=== PATIENT | female | born 1995 | race Caucasian/White ===

== ENCOUNTER 2017-06-27 12:33 | Outpatient (CLI) | payer OTHER ==
[~2017-06-27] VITALS: Ht 160 cm; Wt 113.4 kg
[2017-06-27] VITALS (10 sets, daily range): BP systolic 133–152; BP diastolic 71–86
[2017-06-27] MEDS ORDERED: PRENATAL TABLE1 EAC3 PO (13:00)
[2017-06-27 13:45] LABS: EOSINOPHIL (%) 0.8 % (0-5); EOSINOPHIL COUNT 0.1 K/uL (0-0.3); HEMATOCRIT 30.8 % (36.0-46.0); IMMATURE GRANULOCYTE (%) 0.8 % (0.0-0.7); IMMATURE GRANULOCYTE COUNT 0.1 K/uL; INSTRUMENT ABS NEUTROPHIL CT 7.1 K/uL; LYMPHOCYTE COUNT 1.4 K/uL (1.0-2.8); MCH 26.1 PG (29.0-34.0); MCHC 32.1 G/DL (30.0-36.0); MCV 81.3 FL (83-99); MEAN PLAT.VOLUME 11.1 uM^3 (9.5-12.4); MONOCYTE (%) 6.1 % (3-12); MONOCYTE COUNT 0.6 K/uL (0-0.8); NEUTROPHIL (%) 77.1 % (45-76); NEUTROPHIL COUNT 7.1 K/uL (1.8-6.4); PLATELET COUNT 308 K/uL (156-360); RBC DIS.WIDTH-CV 14.3 % (11.8-14.6); RBC DIS.WIDTH-SD 41.6 % (39-53); RED BLOOD COUNT 3.79 M/uL (3.80-5.20); WHITE BLOOD COUNT 9.3 K/uL (4.1-10.2)
[2017-06-27 14:03] LABS: ALKALINE PHOSPHATASE 177 IU/L (3-129); ANION GAP 10 MEQ/L (2-14); CHLORIDE 106 MEQ/L (99-109); GFR ESTIMATE (CALCULATED) > 59 mL/min/; GLUCOSE 80 mg/dL (70-99); POTASSIUM 3.9 MEQ/L (3.7-5.4); SAMPLE HEMOLYSIS CHECK 0; SAMPLE ICTERIC CHECK 0; SAMPLE LIPEMIA CHECK 0; SODIUM 137 MEQ/L (136-147); TOTAL BILIRUBIN 0.5 MG/DL (0.0-1.0); UREA NITROGEN (BUN) 8 mg/dL (9-23); URIC ACID 5.7 mg/dL (3.1-9.2)
[2017-06-27 16:09] LABS: UR CREATININE CONCENTRATION 88.6 MG/DL
== END 2017-06-27 17:16 | disposition home or self-care (01) ==
LOC: LDRP-OP 12:33 → 2WEST 12:34 → LDRP-OP 08-09 09:12
PROVIDERS: Obstetrics & Gynecology Gynecology
DX: O26.893 Other specified pregnancy related conditions, third trimester (principal); R79.89 Other specified abnormal findings of blood chemistry; R03.0 Elevated blood-pressure reading, without diagnosis of hypertension; Z3A.38 38 weeks gestation of pregnancy
CPT/HCPCS: 59025; 80053; 82570; 84156; 84550; 85025; G0378

== ENCOUNTER 2017-06-29 11:20 | Inpatient (IN) | payer OTHER ==
[2017-06-29] VITALS (20 sets, daily range): BP systolic 124–152; BP diastolic 69–87
[~2017-06-29] VITALS: Ht 162.6 cm; Wt 115.9 kg
[~2017-06-29 11:20] MED LIST: PRENATAL TABLE1 EAC3 PO
[2017-06-29 12:21] LABS: EOSINOPHIL (%) 0.6 % (0-5); EOSINOPHIL COUNT 0.1 K/uL (0-0.3); HEMATOCRIT 30.6 % (36.0-46.0); IMMATURE GRANULOCYTE (%) 0.5 % (0.0-0.7); IMMATURE GRANULOCYTE COUNT 0.1 K/uL; INSTRUMENT ABS NEUTROPHIL CT 7.3 K/uL; LYMPHOCYTE COUNT 1.4 K/uL (1.0-2.8); MCH 27.3 PG (29.0-34.0); MCHC 33.7 G/DL (30.0-36.0); MCV 81.2 FL (83-99); MEAN PLAT.VOLUME 11.4 uM^3 (9.5-12.4); MONOCYTE (%) 5.7 % (3-12); MONOCYTE COUNT 0.5 K/uL (0-0.8); NEUTROPHIL (%) 78.5 % (45-76); NEUTROPHIL COUNT 7.3 K/uL (1.8-6.4); PLATELET COUNT 276 K/uL (156-360); RBC DIS.WIDTH-CV 14.4 % (11.8-14.6); RED BLOOD COUNT 3.77 M/uL (3.80-5.20); WHITE BLOOD COUNT 9.3 K/uL (4.1-10.2)
[2017-06-29 12:33] LABS: CHLORIDE 107 mEq/L (99-109); POTASSIUM 3.9 mEq/L (3.7-5.4); SODIUM 137 mEq/L (136-147)
[2017-06-29 12:36] LABS: GLUCOSE 81 mg/dL (70-99)
[2017-06-29 12:37] LABS: ANION GAP 13 MEQ/L (2-14)
[2017-06-29 12:38] LABS: TOTAL BILIRUBIN 0.7 mg/dL (0.0-1.0)
[2017-06-29 12:38] LABS: UR CREATININE CONCENTRATION 139.8 MG/DL
[2017-06-29 12:39] LABS: ALKALINE PHOSPHATASE 200 IU/L (3-129); GFR ESTIMATE (CALCULATED) > 59 mL/min/
[2017-06-29 12:40] LABS: UREA NITROGEN (BUN) 7 mg/dL (9-23)
[2017-06-29 18:08] LABS: EOSINOPHIL (%) 0.6 % (0-5); EOSINOPHIL COUNT 0.1 K/uL (0-0.3); HEMATOCRIT 30.7 % (36.0-46.0); IMMATURE GRANULOCYTE (%) 0.5 % (0.0-0.7); IMMATURE GRANULOCYTE COUNT 0.1 K/uL; INSTRUMENT ABS NEUTROPHIL CT 8.4 K/uL; LYMPHOCYTE COUNT 1.7 K/uL (1.0-2.8); MCH 26.7 PG (29.0-34.0); MCHC 32.6 G/DL (30.0-36.0); MCV 81.9 FL (83-99); MEAN PLAT.VOLUME 11.4 uM^3 (9.5-12.4); MONOCYTE (%) 6.5 % (3-12); MONOCYTE COUNT 0.7 K/uL (0-0.8); NEUTROPHIL COUNT 8.4 K/uL (1.8-6.4); PLATELET COUNT 313 K/uL (156-360); RBC DIS.WIDTH-CV 14.4 % (11.8-14.6); RBC DIS.WIDTH-SD 42.2 % (39-53); RED BLOOD COUNT 3.75 M/uL (3.80-5.20); WHITE BLOOD COUNT 10.9 K/uL (4.1-10.2)
[2017-06-29 20:39] LABS: ALKALINE PHOSPHATASE 179 IU/L (3-129); ANION GAP 10 MEQ/L (2-14); CHLORIDE 106 MEQ/L (99-109); GFR ESTIMATE (CALCULATED) > 59 mL/min/; GLUCOSE 92 mg/dL (70-99); POTASSIUM 3.5 MEQ/L (3.7-5.4); SAMPLE HEMOLYSIS CHECK 0; SAMPLE ICTERIC CHECK 0; SAMPLE LIPEMIA CHECK 0; SODIUM 136 MEQ/L (136-147); UREA NITROGEN (BUN) 9 mg/dL (9-23)
[2017-06-29 20:40] LABS: TOTAL BILIRUBIN 0.8 MG/DL (0.0-1.0)
[2017-06-30] VITALS (36 sets, daily range): BP systolic 107–167; BP diastolic 55–108
[2017-06-30 06:48] LABS: HEMATOCRIT 29.3 % (36.0-46.0); MCH 26.2 PG (29.0-34.0); MCHC 32.1 G/DL (30.0-36.0); MCV 81.6 FL (83-99); MEAN PLAT.VOLUME 11.4 uM^3 (9.5-12.4); PLATELET COUNT 271 K/uL (156-360); RBC DIS.WIDTH-CV 14.2 % (11.8-14.6); RBC DIS.WIDTH-SD 41.7 % (39-53); RED BLOOD COUNT 3.59 M/uL (3.80-5.20)
[2017-06-30 07:16] LABS: ALKALINE PHOSPHATASE 171 IU/L (3-129); ANION GAP 12 MEQ/L (2-14); CHLORIDE 107 MEQ/L (99-109); GFR ESTIMATE (CALCULATED) > 59 mL/min/; GLUCOSE 75 mg/dL (70-99); POTASSIUM 3.6 MEQ/L (3.7-5.4); SAMPLE HEMOLYSIS CHECK 0; SAMPLE ICTERIC CHECK 0; SAMPLE LIPEMIA CHECK 0; SODIUM 138 MEQ/L (136-147); UREA NITROGEN (BUN) 7 mg/dL (9-23)
[2017-06-30] MEDS ORDERED: ENDOCET 5-3251 EACH PO (23:56)
[2017-06-30] MEDS ORDERED: IBUPROFEN800 MG PO (23:56)
[2017-07-01] VITALS (9 sets, daily range): BP systolic 122–143; BP diastolic 68–91
[2017-07-01 06:44] LABS: EOSINOPHIL (%) 0.1 % (0-5); HEMATOCRIT 26.9 % (36.0-46.0); IMMATURE GRANULOCYTE (%) 0.8 % (0.0-0.7); IMMATURE GRANULOCYTE COUNT 0.1 K/uL; INSTRUMENT ABS NEUTROPHIL CT 14.6 K/uL; LYMPHOCYTE COUNT 1.1 K/uL (1.0-2.8); MCH 27.5 PG (29.0-34.0); MCHC 33.1 G/DL (30.0-36.0); MEAN PLAT.VOLUME 11.5 uM^3 (9.5-12.4); MONOCYTE (%) 5.3 % (3-12); MONOCYTE COUNT 0.9 K/uL (0-0.8); NEUTROPHIL (%) 87.3 % (45-76); NEUTROPHIL COUNT 14.6 K/uL (1.8-6.4); PLATELET COUNT 278 K/uL (156-360); RBC DIS.WIDTH-CV 14.4 % (11.8-14.6); RBC DIS.WIDTH-SD 43.4 % (39-53); RED BLOOD COUNT 3.24 M/uL (3.80-5.20); WHITE BLOOD COUNT 16.7 K/uL (4.1-10.2)
[2017-07-01 07:01] LABS: ANION GAP 8 MEQ/L (2-14); CHLORIDE 107 MEQ/L (99-109); POTASSIUM 3.9 MEQ/L (3.7-5.4); SAMPLE HEMOLYSIS CHECK 0; SAMPLE ICTERIC CHECK 0; SAMPLE LIPEMIA CHECK 0; SODIUM 135 MEQ/L (136-147); TOTAL BILIRUBIN 0.9 MG/DL (0.0-1.0)
[2017-07-01 07:08] LABS: ALKALINE PHOSPHATASE 158 IU/L (3-129); GFR ESTIMATE (CALCULATED) > 59 mL/min/; UREA NITROGEN (BUN) 8 mg/dL (9-23)
[2017-07-01 07:11] LABS: GLUCOSE 106 mg/dL (70-99)
[2017-07-02] VITALS (7 sets, daily range): BP systolic 113–148; BP diastolic 56–90
[2017-07-02 07:32] LABS: EOSINOPHIL (%) 1.2 % (0-5); EOSINOPHIL COUNT 0.1 K/uL (0-0.3); IMMATURE GRANULOCYTE (%) 1.3 % (0.0-0.7); IMMATURE GRANULOCYTE COUNT 0.2 K/uL; INSTRUMENT ABS NEUTROPHIL CT 8.5 K/uL; LYMPHOCYTE COUNT 1.9 K/uL (1.0-2.8); MCH 27.8 PG (29.0-34.0); MCHC 33.2 G/DL (30.0-36.0); MCV 83.6 FL (83-99); MEAN PLAT.VOLUME 11.2 uM^3 (9.5-12.4); MONOCYTE (%) 6.1 % (3-12); MONOCYTE COUNT 0.7 K/uL (0-0.8); NEUTROPHIL (%) 74.4 % (45-76); NEUTROPHIL COUNT 8.5 K/uL (1.8-6.4); PLATELET COUNT 275 K/uL (156-360); RBC DIS.WIDTH-CV 14.9 % (11.8-14.6); RED BLOOD COUNT 2.99 M/uL (3.80-5.20); WHITE BLOOD COUNT 11.4 K/uL (4.1-10.2)
[2017-07-02 07:56] LABS: ALKALINE PHOSPHATASE 132 IU/L (3-129); ANION GAP 8 MEQ/L (2-14); CHLORIDE 109 MEQ/L (99-109); GFR ESTIMATE (CALCULATED) > 59 mL/min/; GLUCOSE 92 mg/dL (70-99); POTASSIUM 3.8 MEQ/L (3.7-5.4); SAMPLE HEMOLYSIS CHECK 0; SAMPLE ICTERIC CHECK 0; SAMPLE LIPEMIA CHECK 0; SODIUM 139 MEQ/L (136-147); UREA NITROGEN (BUN) 10 mg/dL (9-23); URIC ACID 7.2 mg/dL (3.1-9.2)
[2017-07-02 08:01] LABS: TOTAL BILIRUBIN 0.4 MG/DL (0.0-1.0)
[2017-07-03 03:35] VITALS: BP 131/76
[2017-07-03] MEDS ORDERED: LABETALOL HCL100 MG PO (06:33)
[2017-07-03 07:13] VITALS: BP 153/79
[2017-07-03 11:13] VITALS: BP 142/78
[2017-07-04] MEDS ORDERED: LASIX20 MG PO (11:53)
[2017-07-04] MEDS ORDERED: PROVENTIL HFA6.7 GM IH (11:53)
[2017-07-04] MEDS ORDERED: MUCINEX DM ER1 EACH PO (11:53)
== END 2017-07-03 13:01 | disposition home or self-care (01) | DRG 765 ==
LOC: ADMIT3 → LDRP-OP 11:20 → 2WEST 11:21 → LDRP-OP 08-09 18:27
PROVIDERS: Advanced Practice Midwife; Nurse Practitioner; Obstetrics & Gynecology; Obstetrics & Gynecology Gynecology; Obstetrics & Gynecology Obstetrics
PROC: 3E0P7GC Introduction of Other Therapeutic Substance into Female Reproductive, Via Natural or Artificial Opening (ICD-10-PCS; 2017-06-29)
PROC: 10D00Z1 Extraction of Products of Conception, Low, Open Approach (ICD-10-PCS; principal; 2017-06-30)
PROC: 10907ZC Drainage of Amniotic Fluid, Therapeutic from Products of Conception, Via Natural or Artificial Opening (ICD-10-PCS; 2017-06-30)
PROC: 3E0S3BZ Introduction of Anesthetic Agent into Epidural Space, Percutaneous Approach (ICD-10-PCS; 2017-06-30)
DX: O13.4 Gestational [pregnancy-induced] hypertension without significant proteinuria, complicating childbirth (principal); O99.354 Diseases of the nervous system complicating childbirth; Z3A.38 38 weeks gestation of pregnancy; Z37.0 Single live birth; O15.1 Eclampsia complicating labor; O77.0 Labor and delivery complicated by meconium in amniotic fluid; O99.214 Obesity complicating childbirth; E66.9 Obesity, unspecified; G43.909 Migraine, unspecified, not intractable, without status migrainosus; O62.1 Secondary uterine inertia; O14.04 Mild to moderate pre-eclampsia, complicating childbirth; O33.8 Maternal care for disproportion of other origin
CPT/HCPCS: 80053; 80306 90; 82570; 84156; 84550; 85025; 85025 91; 85027; 86850; 86900; 86901; 88307; C1755; G0378; J0690; J1100; J2274; J2405; J3010; J7030; J7120

== ENCOUNTER 2017-07-04 06:31 | Emergency (ER) | payer OTHER ==
[~2017-07-04] VITALS: Ht 160 cm; Wt 113.0 kg
[~2017-07-04 06:31] MED LIST changes: +ENDOCET 5-3251 EACH PO; +IBUPROFEN800 MG PO; +LABETALOL HCL100 MG PO
[2017-07-04 06:47] LABS: HEMATOCRIT 23.1 % (36.0-46.0); MCH 27.1 PG (29.0-34.0); MCHC 32.5 G/DL (30.0-36.0); MCV 83.4 FL (83-99); MEAN PLAT.VOLUME 10.1 uM^3 (9.5-12.4); PLATELET COUNT 311 K/uL (156-360); RBC DIS.WIDTH-CV 14.7 % (11.8-14.6); RBC DIS.WIDTH-SD 44.6 % (39-53); RED BLOOD COUNT 2.77 M/uL (3.80-5.20); WHITE BLOOD COUNT 10.5 K/uL (4.1-10.2)
[2017-07-04 06:56] LABS: CHLORIDE 111 mEq/L (99-109); POTASSIUM 3.9 mEq/L (3.7-5.4); SODIUM 141 mEq/L (136-147)
[2017-07-04 06:58] LABS: GLUCOSE 97 mg/dL (70-99)
[2017-07-04 06:59] LABS: ANION GAP 8 MEQ/L (2-14)
[2017-07-04 07:02] LABS: GFR ESTIMATE (CALCULATED) > 59 mL/min/; UREA NITROGEN (BUN) 9 mg/dL (9-23)
[2017-07-04 07:57] LABS: TROP-I INTERPRETATION NEGATIVE; TROPONIN-I 0.03 ng/mL (0.0-0.30)
[2017-07-04] MEDS ORDERED: LASIX20 MG PO (11:53)
[2017-07-04] MEDS ORDERED: PROVENTIL HFA6.7 GM IH (11:53)
[2017-07-04] MEDS ORDERED: MUCINEX DM ER1 EACH PO (11:53)
[2017-07-04 12:35] VITALS: BP 156/99
== END 2017-07-04 12:30 | disposition home or self-care (01) ==
LOC: EME 06:31
DX: J20.9 Acute bronchitis, unspecified (principal); R60.0 Localized edema; J90 Pleural effusion, not elsewhere classified; O13.5 Gestational [pregnancy-induced] hypertension without significant proteinuria, complicating the puerperium
CPT/HCPCS: 71020; 71275; 80048; 83880; 84484; 85027; 93005; 94640; 99281; 99285; J1940